=== PATIENT | female | born 1995 | race Caucasian/White ===

== ENCOUNTER 2016-09-16 12:12 | Emergency (ER) | payer MEDICAID ==
[~2016-09-16] VITALS: Ht 160 cm; Wt 72.1 kg
[2016-09-16 12:20] VITALS: BP 112/71; PULSE 103; RESP 16; TEMP 98.5; O2SAT 97
[2016-09-16] MEDS ORDERED: SODIUM CHLOR 0.9% 1000 ML INJ 1,000 ML IV SCH (13:07)
--- NOTE | 2016-09-16 13:07 | PD ---
HPI . vomiting and possible UTI Chief Complaint: GI Complaint Time Seen by Provider: 13:07 Travel History International Travel<30 days: No Contact w/Intl Traveler<30days: No Traveled to known affect area: No History of Present Illness HPI 20-year-old female who is 7 weeks complains of vomiting 5 times this morning and possible UTI. Patient says she has been having some nausea and vomiting and decided to come to the emergency department as her wooden boat builder told her she may need IV fluids due to possible electrolyte imbalance. She is also telling me that she has a sensation of UTI and would like her urine checked. She tells me that she has the same symptoms of nausea and vomiting compared to prior pregnancies. She denies any abdominal pain or vaginal bleeding. She has no other complaints. PFSH Past Medical History Medical History: Denies Significant Hx Tetanus Vaccination: < 5 Years Influenza Vaccination: No ?: LMP: 07/30/16 Past Surgical History Surgical History: No Previous Surgery Social History Alcohol Use: No Tobacco Use: No Substance Use: No Allergies-Medications (Allergen,Severity, Reaction): Coded Allergies: No Known Allergies (Unverified , 09/16/16) Reported Meds & Prescriptions Reported Meds & Active Scripts Active No Active Prescriptions or Reported Medications Review of Systems General / Constitutional: No: Fever Eyes: No: Visual changes HENT: No: Headaches Cardiovascular: No: Chest Pain or Discomfort Respiratory: No: Shortness of Breath Gastrointestinal: Positive: Nausea, Vomiting, No: Abdominal Pain Genitourinary: Positive: Frequency, No: Dysuria Musculoskeletal: No: Pain Skin: No Rash Neurologic: No: Weakness Psychiatric: No: Depression Endocrine: No: Polydipsia Hematologic/Lymphatic: No: Easy Bruising Physical Exam Narrative GENERAL: AAO x 3, no acute distress, Well-nourished, well-developed patient. SKIN: Warm and dry. No visible rashes or bruising. HEAD: Normocephalic and atraumatic. EYES: No scleral icterus. No injection or drainage. ENT: No nasal drainage noted. Mucous membranes pink. Airway patent. NECK: Supple, trachea midline. No JVD. CARDIOVASCULAR: Regular rate and rhythm without murmurs, gallops, or rubs. RESPIRATORY: Breath sounds equal bilaterally. No accessory muscle use. No rhonchi or rales. GASTROINTESTINAL: Abdomen soft, non-tender, nondistended. EXTREMITIES: No cyanosis or edema. BACK: Nontender without obvious deformity. No CVA tenderness. PSYCH: AAO x 3, normal affect. Data Data Last Documented VS Vital Signs Date Time Temp Pulse Resp B/P Pulse Ox O2 Delivery O2 Flow Rate FiO2 09/16/16 12:20 98.5 103 16 112/71 97 Orders Basic Metabolic Panel (Bmp) (09/16/16 13:07) Beta Hcg (Quant/Titer) (09/16/16 13:07) Complete Blood Count With Diff (09/16/16 13:07) Urinalysis - C+S If Indicated (09/16/16 13:07) Iv Access Insert/Monitor (09/16/16 13:07) Sodium Chlor 0.9% 1000 Ml Inj (Ns 1000 M (09/16/16 13:07) Labs Laboratory Tests Test 09/16/16 09/16/16 13:30 13:38 Urine Collection Type CLEAN CATCH Urine Color YELLOW Urine Turbidity SLIGHTY CLOUDY Urine pH 7.0 Urine Specific [place] 1.033 Urine Protein TRACE mg/dL Urine Glucose (UA) NEG mg/dL Urine Ketones TRACE mg/dL Urine Occult Blood NEG Urine Nitrite NEG Urine Bilirubin NEG Urine Leukocyte Esterase NEG Urine WBC 0-2 /hpf Urine Squamous Epithelial > 8 /hpf Cells Urine Amorphous Sediment FEW Urine Bacteria FEW /hpf Microscopic Urinalysis Comment CULT NOT INDICATED White Blood Count 6.2 TH/MM3 Red Blood Count 5.01 MIL/MM3 Hemoglobin 14.6 GM/DL Hematocrit 44.1 % Mean Corpuscular Volume 87.9 FL Mean Corpuscular Hemoglobin 29.2 PG Mean Corpuscular Hemoglobin 33.2 % Concent Red Cell Distribution Width 12.4 % Platelet Count 297 TH/MM3 Mean Platelet Volume 7.7 FL Neutrophils (%) (Auto) 76.0 % Lymphocytes (%) (Auto) 17.8 % Monocytes (%) (Auto) 5.3 % Eosinophils (%) (Auto) 0.4 % Basophils (%) (Auto) 0.5 % Neutrophils # (Auto) 4.8 TH/MM3 Lymphocytes # (Auto) 1.1 TH/MM3 Monocytes # (Auto) 0.3 TH/MM3 Eosinophils # (Auto) 0.0 TH/MM3 Basophils # (Auto) 0.0 TH/MM3 CBC Comment DIFF FINAL Differential Comment Sodium Level 139 MEQ/L Potassium Level 3.9 MEQ/L Chloride Level 106 MEQ/L Carbon Dioxide Level 24.7 MEQ/L Anion Gap 8 MEQ/L Blood Urea Nitrogen 10 MG/DL Creatinine 0.62 MG/DL Estimat Glomerular Filtration 124 ML/MIN Rate Random Glucose 84 MG/DL Calcium Level 8.2 MG/DL Human Chorionic Gonadotropin, [address] MIU/ML Quant MDM Medical Decision Making Medical Screen Exam Complete: Yes Emergency Medical Condition: Yes Medical Record Reviewed: Yes Differential Diagnosis Hyperemesis gravidarum, nausea and vomiting associated with , UTI Narrative Course 20-year-old female who is 7 weeks complains of vomiting 5 times this morning and possible UTI. Patient says she has been having some nausea and vomiting and decided to come to the emergency department as her wooden boat builder told her she may need IV fluids due to possible electrolyte imbalance. She is also telling me that she has a sensation of UTI and would like her urine checked. She tells me that she has the same symptoms of nausea and vomiting compared to prior pregnancies. She denies any abdominal pain or vaginal bleeding. She has no other complaints. Patient seen and examined. She is hemodynamically stable and there are no abnormal findings on physical exam. We'll check labs and UA. If negative, patient will be discharged home and advised to follow up with her wooden boat builder. I've explained all of the anti-nausea medications and their risk with and side effects. Together we have both decided that she will hold off on taking any of these medications. She will return to the ED if her symptoms return or worsen. Discussed all negative findings with patient. Laboratory Tests Test 09/16/16 09/16/16 13:30 13:38 Urine Collection Type CLEAN CATCH Urine Color YELLOW Urine Turbidity SLIGHTY CLOUDY Urine pH 7.0 Urine Specific [place] 1.033 Urine Protein TRACE mg/dL Urine Glucose (UA) NEG mg/dL Urine Ketones TRACE mg/dL Urine Occult Blood NEG Urine Nitrite NEG Urine Bilirubin NEG Urine Leukocyte Esterase NEG Urine WBC 0-2 /hpf Urine Squamous Epithelial > 8 /hpf Cells Urine Amorphous Sediment FEW Urine Bacteria FEW /hpf Microscopic Urinalysis Comment CULT NOT INDICATED White Blood Count 6.2 TH/MM3 Red Blood Count 5.01 MIL/MM3 Hemoglobin 14.6 GM/DL Hematocrit 44.1 % Mean Corpuscular Volume 87.9 FL Mean Corpuscular Hemoglobin 29.2 PG Mean Corpuscular Hemoglobin 33.2 % Concent Red Cell Distribution Width 12.4 % Platelet Count 297 TH/MM3 Mean Platelet Volume 7.7 FL Neutrophils (%) (Auto) 76.0 % Lymphocytes (%) (Auto) 17.8 % Monocytes (%) (Auto) 5.3 % Eosinophils (%) (Auto) 0.4 % Basophils (%) (Auto) 0.5 % Neutrophils # (Auto) 4.8 TH/MM3 Lymphocytes # (Auto) 1.1 TH/MM3 Monocytes # (Auto) 0.3 TH/MM3 Eosinophils # (Auto) 0.0 TH/MM3 Basophils # (Auto) 0.0 TH/MM3 CBC Comment DIFF FINAL Differential Comment Sodium Level 139 MEQ/L Potassium Level 3.9 MEQ/L Chloride Level 106 MEQ/L Carbon Dioxide Level 24.7 MEQ/L Anion Gap 8 MEQ/L Blood Urea Nitrogen 10 MG/DL Creatinine 0.62 MG/DL Estimat Glomerular Filtration 124 ML/MIN Rate Random Glucose 84 MG/DL Calcium Level 8.2 MG/DL Human Chorionic Gonadotropin, [address] MIU/ML Quant Patient verbalized understanding of instructions, questions were answered, and thanked me for their care. I advised them if their condition worsens, please return to the nearest emergency room for further care. Diagnosis Primary Impression: Nausea and vomiting Qualified Code: R11.2 - Non-intractable vomiting with nausea, unspecified vomiting type Additional Impression: Qualified Code: Z3A.01 - Less than 8 weeks gestation of Patient Instructions: General Instructions, Hyperemesis Gravidarum (ED) Additional Instructions: Please return to emergency department if your symptoms return or worsen. Follow up with your primary care provider. Please follow up with your wooden boat builder this week. Med/Other Pt SpecificInfo: No Change to Meds Scripts No Active Prescriptions or Reported Meds Disposition: 01 DISCHARGE HOME Condition: Stable Yary Dixon Sep 16, 2016 13:07
[2016-09-16 13:47] LABS: BLOOD, URINE NEG (NEG); GLUCOSE,URINE NEG (NEG); KETONE, URINE TRACE mg/dL (NEG); NITRITE,URINE NEG (NEG)
[2016-09-16 13:48] LABS: AUTOMATED NEUTROPHIL # 4.8 TH/MM3 (1.8-7.7); BASOPHIL % 0.5 % (0.0-2.0); EOSINOPHIL % 0.4 % (0.0-4.0); HEMATOCRIT 44.1 % (35.0-46.0); HEMO FLAGS DIFF FINAL; LYMPH % 17.8 % (9.0-44.0); LYMPHOCYTE # 1.1 TH/MM3 (1.0-4.8); MEAN CELL VOLUME 87.9 FL (80.0-100.0); MEAN CORPUSCULAR HEMOGLOBIN 29.2 PG (27.0-34.0); MEAN CORPUSCULAR HGB CONC 33.2 % (32.0-36.0); MONO % 5.3 % (0.0-8.0); PLATELET COUNT 297 TH/MM3 (150-450); RED BLOOD COUNT 5.01 MIL/MM3 (4.00-5.30); RED CELL DISTRIBUTION WIDTH 12.4 % (11.6-17.2); WHITE BLOOD COUNT 6.2 TH/MM3 (4.0-11.0)
[2016-09-16 13:49] LABS: METHOD OF COLLECTION CLEAN CATCH; URINE COLOR YELLOW (YELLW/STRAW)
[2016-09-16 13:51] LABS: BACTERIA, URINE FEW /hpf; COMMENT (UR) CULT NOT INDICATED; CULTURE IF INDICATED CULT NOT INDICATED; SQUAMOUS EPITHELIAL CELL URINE > 8 /hpf (0-5); WBC, URINE 0-2 /hpf (0-5)
[2016-09-16 13:57] LABS: POTASSIUM 3.9 MEQ/L (3.5-5.1)
[2016-09-16 14:00] LABS: BICARBONATE 24.7 MEQ/L (21.0-32.0)
[2016-09-16 14:30] VITALS: BP 119/71; PULSE 82; RESP 14; O2SAT 100
== END 2016-09-16 14:35 | disposition home or self-care (01) ==
LOC: PHEFT 12:12
DX: O21.0 Mild hyperemesis gravidarum (principal); Z3A.01 Less than 8 weeks gestation of pregnancy
CPT/HCPCS: 80048; 81001; 84702; 85025; 96360; 99284; J7030

== ENCOUNTER 2016-09-25 17:55 | Emergency (ER) | payer MEDICAID ==
[~2016-09-25] VITALS: Ht 160 cm; Wt 71.8 kg
[2016-09-25 17:56] VITALS: BP 118/72; PULSE 106; RESP 20; TEMP 98.2; O2SAT 100
[2016-09-25] MEDS ORDERED: ONDANSETRON HCL 4 MG/2 ML VIAL IV PUSH ONE (20:00)
[2016-09-25] MEDS ORDERED: SODIUM CHLOR 0.9% 1000 ML INJ 1,000 ML IV ONE ×2 (20:00→21:30)
[2016-09-25] MEDS ORDERED: SODIUM CHLORIDE 0.9% FLUSH 10 ML FLUSH IVF PRN (20:00)
--- NOTE | 2016-09-25 20:05 | PD ---
HPI Chief Complaint: GI Complaint Time Seen by Provider: 20:02 Travel History International Travel<30 days: No Contact w/Intl Traveler<30days: No Traveled to known affect area: No History of Present Illness HPI 20-year-old female presents to the emergency department for evaluation nausea and vomiting this is ongoing for 6 weeks. She states that she started with low back pain and abdominal cramping last night. She was seen at ED previously and states that she was not given any nausea medication. Her funeral counselor told her to return the emergency department if her symptoms reoccurred. She states that she has been unable to keep anything down today and has had multiple episodes of vomiting. She reports being 8 weeks . Her last menstrual period was July 30, 2016. She is a G2, P1. She has no chronic medical problems and takes no medications. She has no known allergies. She denies any fevers. No chest pressure breath. No diarrhea. No other complaints. She denies any abnormal vaginal discharge. No vaginal bleeding or leakage of fluid. PFSH Past Medical History ?: LMP: 07/30/2016 Social History Alcohol Use: No Tobacco Use: No Substance Use: No Allergies-Medications (Allergen,Severity, Reaction): Coded Allergies: No Known Allergies (Unverified , 09/25/16) Reported Meds & Prescriptions Reported Meds & Active Scripts Active No Active Prescriptions or Reported Medications Review of Systems Except as stated in HPI: all other systems reviewed are Neg Physical Exam Narrative GENERAL: Well-nourished, well-developed female patient ambulatory. Afebrile., SKIN: Focused skin assessment warm/dry. HEAD: Normocephalic. Atraumatic. EYES: No scleral icterus. No injection or drainage. NECK: Supple, trachea midline. No JVD or lymphadenopathy. CARDIOVASCULAR: Regular rate and rhythm without murmurs, gallops, or rubs. RESPIRATORY: Breath sounds equal bilaterally. No accessory muscle use. Lungs sounds are clear to auscultation. GASTROINTESTINAL: Abdomen and nondistended. Mild pelvic tenderness to palpation. MUSCULOSKELETAL: No cyanosis, or edema. BACK: Nontender without obvious deformity. No CVA tenderness. Data Data Last Documented VS Vital Signs Date Time Temp Pulse Resp B/P Pulse Ox O2 Delivery O2 Flow Rate FiO2 09/25/16 17:56 98.2 106 20 118/72 100 Room Air Orders Beta Hcg (Quant/Titer) (09/25/16 20:00) Complete Blood Count With Diff (09/25/16 20:00) Comprehensive Metabolic Panel (09/25/16 20:00) Urinalysis - C+S If Indicated (09/25/16 20:00) Sodium Chloride 0.9% Flush (Ns Flush) (09/25/16 20:00) Sodium Chlor 0.9% 1000 Ml Inj (Ns 1000 M (09/25/16 20:00) Ondansetron Inj (Zofran Inj) (09/25/16 20:00) Ed Poc Ultrasound (09/25/16 ) Ed Poc Ultrasound (09/25/16 ) MDM Medical Decision Making Medical Screen Exam Complete: Yes Emergency Medical Condition: Yes Medical Record Reviewed: Yes Differential Diagnosis Nausea and vomiting during versus intrauterine versus ectopic versus dehydration versus electrolyte abnormality Narrative Course 20-year-old female presents to the emergency department for evaluation nausea and vomiting during . She reports being approximately 8 weeks . Patient does report some mild abdominal cramping as well. CBC, CMP, beta hCG, UA are ordered and pending. Patient is given normal saline 1 L IV bolus, Zofran 4 mg IV. ED POC ultrasound shows single intrauterine with good FHT, done by my attending physician, Dr. Freitas. Dr. Freitas will resume care and disposition of patient. Scripts No Active Prescriptions or Reported Meds Maura Lux Sep 25, 2016 20:04
--- NOTE | 2016-09-25 20:33 | PD ---
Physical Exam Date Seen by Provider: Sep 25, 2016 Time Seen by Provider: 20:30 Narrative The patient is a 20 year-old female was initially evaluated by the mid-level provider, please refer to the original history, physical, diagnostic evaluation , and treatment modality plan. Data Data Last Documented VS Vital Signs Date Time Temp Pulse Resp B/P Pulse Ox O2 Delivery O2 Flow Rate FiO2 09/25/16 17:56 98.2 106 20 118/72 100 Room Air Orders Beta Hcg (Quant/Titer) (09/25/16 20:00) Complete Blood Count With Diff (09/25/16 20:00) Comprehensive Metabolic Panel (09/25/16 20:00) Urinalysis - C+S If Indicated (09/25/16 20:00) Sodium Chloride 0.9% Flush (Ns Flush) (09/25/16 20:00) Sodium Chlor 0.9% 1000 Ml Inj (Ns 1000 M (09/25/16 20:00) Ondansetron Inj (Zofran Inj) (09/25/16 20:00) Ed Poc Ultrasound (09/25/16 ) Ed Poc Ultrasound (09/25/16 ) Urine Culture (09/25/16 20:15) Sodium Chlor 0.9% 1000 Ml Inj (Ns 1000 M (09/25/16 21:30) Labs Laboratory Tests Test 09/25/16 20:15 White Blood Count 8.2 TH/MM3 Red Blood Count 4.92 MIL/MM3 Hemoglobin 14.8 GM/DL Hematocrit 42.4 % Mean Corpuscular Volume 86.1 FL Mean Corpuscular Hemoglobin 30.0 PG Mean Corpuscular Hemoglobin 34.9 % Concent Red Cell Distribution Width 12.9 % Platelet Count 272 TH/MM3 Mean Platelet Volume 7.9 FL Neutrophils (%) (Auto) 81.5 % Lymphocytes (%) (Auto) 8.8 % Monocytes (%) (Auto) 9.3 % Eosinophils (%) (Auto) 0.3 % Basophils (%) (Auto) 0.1 % Neutrophils # (Auto) 6.7 TH/MM3 Lymphocytes # (Auto) 0.7 TH/MM3 Monocytes # (Auto) 0.8 TH/MM3 Eosinophils # (Auto) 0.0 TH/MM3 Basophils # (Auto) 0.0 TH/MM3 CBC Comment DIFF FINAL Differential Comment Urine Color YELLOW Urine Turbidity HAZY Urine pH 6.5 Urine Specific [place] 1.023 Urine Protein TRACE mg/dL Urine Glucose (UA) NEG mg/dL Urine Ketones 80 mg/dL Urine Occult Blood NEG Urine Nitrite NEG Urine Bilirubin NEG Urine Urobilinogen 2.0 MG/DL Urine Leukocyte Esterase LARGE Urine RBC 5 /hpf Urine WBC 7 /hpf Urine Squamous Epithelial 23 /hpf Cells Urine Bacteria MOD /hpf Urine Mucus FEW /lpf Microscopic Urinalysis Comment CULTURE INDICATED Sodium Level 136 MEQ/L Potassium Level 3.6 MEQ/L Chloride Level 103 MEQ/L Carbon Dioxide Level 22.0 MEQ/L Anion Gap 11 MEQ/L Blood Urea Nitrogen 9 MG/DL Creatinine 0.63 MG/DL Estimat Glomerular Filtration 122 ML/MIN Rate Random Glucose 81 MG/DL Calcium Level 8.8 MG/DL Total Bilirubin 1.1 MG/DL Aspartate Amino Transf 17 U/L (AST/SGOT) Alanine Aminotransferase 23 U/L (ALT/SGPT) Alkaline Phosphatase 58 U/L Total Protein 7.4 GM/DL Albumin 4.0 GM/DL Human Chorionic Gonadotropin, [address] MIU/ML Quant [facility] Medical Record Reviewed: Yes Supervised Visit with STEVE: Yes Interpretation(s) Laboratory Tests Test 09/25/16 20:15 White Blood Count 8.2 TH/MM3 Red Blood Count 4.92 MIL/MM3 Hemoglobin 14.8 GM/DL Hematocrit 42.4 % Mean Corpuscular Volume 86.1 FL Mean Corpuscular Hemoglobin 30.0 PG Mean Corpuscular Hemoglobin 34.9 % Concent Red Cell Distribution Width 12.9 % Platelet Count 272 TH/MM3 Mean Platelet Volume 7.9 FL Neutrophils (%) (Auto) 81.5 % Lymphocytes (%) (Auto) 8.8 % Monocytes (%) (Auto) 9.3 % Eosinophils (%) (Auto) 0.3 % Basophils (%) (Auto) 0.1 % Neutrophils # (Auto) 6.7 TH/MM3 Lymphocytes # (Auto) 0.7 TH/MM3 Monocytes # (Auto) 0.8 TH/MM3 Eosinophils # (Auto) 0.0 TH/MM3 Basophils # (Auto) 0.0 TH/MM3 CBC Comment DIFF FINAL Differential Comment Urine Color YELLOW Urine Turbidity HAZY Urine pH 6.5 Urine Specific [place] 1.023 Urine Protein TRACE mg/dL Urine Glucose (UA) NEG mg/dL Urine Ketones 80 mg/dL Urine Occult Blood NEG Urine Nitrite NEG Urine Bilirubin NEG Urine Urobilinogen 2.0 MG/DL Urine Leukocyte Esterase LARGE Urine RBC 5 /hpf Urine WBC 7 /hpf Urine Squamous Epithelial 23 /hpf Cells Urine Bacteria MOD /hpf Urine Mucus FEW /lpf Microscopic Urinalysis Comment CULTURE INDICATED Sodium Level 136 MEQ/L Potassium Level 3.6 MEQ/L Chloride Level 103 MEQ/L Carbon Dioxide Level 22.0 MEQ/L Anion Gap 11 MEQ/L Blood Urea Nitrogen 9 MG/DL Creatinine 0.63 MG/DL Estimat Glomerular Filtration 122 ML/MIN Rate Random Glucose 81 MG/DL Calcium Level 8.8 MG/DL Total Bilirubin 1.1 MG/DL Aspartate Amino Transf 17 U/L (AST/SGOT) Alanine Aminotransferase 23 U/L (ALT/SGPT) Alkaline Phosphatase 58 U/L Total Protein 7.4 GM/DL Albumin 4.0 GM/DL Human Chorionic Gonadotropin, 234[address] MIU/ML Quant Differential Diagnosis Differential diagnosis includes hyperemesis gravidarum, , morning sickness, dehydration, electrolyte abnormality, UTI. Narrative Course I, Dr. Freitas, have reviewed the advance practice practitioner's documentation and am in agreement, met with the patient face to face, made the diagnosis, and the medical decision making was done by me. *My assessment and Findings: 20-year-old female was initially evaluated by the mid-level provider. The patient is a last menstrual cycle July 25, 2016 is approximately 8 weeks . The patient presents with continuing nausea and vomiting. The patient also notes mild lower abdominal cramping but denies any bleeding. The patient's initial was uncomplicated, full- term, vaginal delivery. The patient denies any current dysuria, frequency, or urgency. Physical examination is unremarkable except for mild dehydration. Bedside ultrasound was performed which reveals IUP with positive heart tones. The patient was administered IV fluids and antiemetics. The patient was then monitored in the emergency department and reevaluated. The patient's UA reveals 23 squamous epithelia cells, 7 WBCs, 5 RBCs, most likely contaminant. The patient was reassessed at 9:28 PM, her symptoms had improved. The patient was administered one more liter of IV fluids that she did have 80 of ketones on UA. She will be discharged home on Zofran and Phenergan. I did have a discussion with regarding the safety of Zofran and Phenergan, category B and C respectively. She is advised to return if symptoms worsen or progress. Procedures Procedure Narrative Bedside ultrasound was performed with a curvilinear probe which reveals positive heart tones and IUP. The patient tolerated the procedure without difficulty and there was no obvious complications. Diagnosis Primary Impression: Nausea and vomiting Qualified Code: R11.2 - Non-intractable vomiting with nausea, unspecified vomiting type Additional Impression: Qualified Code: Z33.1 - , unspecified gestational age Patient Instructions: General Instructions Additional Instruction: Medications as directed. Also try nabila as needed. Plenty of fluids to stay hydrated. Follow-up with your psychologist military personnel. Return if symptoms worsen or progress. Med/Other Pt SpecificInfo: Prescription(s) given Scripts Promethazine (Phenergan)25 Mg Tab25 Mg PO Q6H PRN (Nausea/Vomiting) #10 TAB Ref 0 Prov:Vamshi Freitas MD 09/25/16 Ondansetron Odt (Zofran Odt)4 Mg Tab4 Mg SL Q6HR PRN (Nausea/Vomiting) #10 TAB Ref 0 Prov:Vamshi Freitas MD 09/25/16 Disposition: DISCHARGE HOME Condition: Stable Vamshi Freitas MD Sep 25, 2016 20:32
[2016-09-25 20:42] LABS: AUTOMATED NEUTROPHIL # 6.7 TH/MM3 (1.8-7.7); BASOPHIL % 0.1 % (0.0-2.0); EOSINOPHIL % 0.3 % (0.0-4.0); HEMATOCRIT 42.4 % (35.0-46.0); HEMO FLAGS DIFF FINAL; LYMPH % 8.8 % (9.0-44.0); LYMPHOCYTE # 0.7 TH/MM3 (1.0-4.8); MEAN CELL VOLUME 86.1 FL (80.0-100.0); MEAN CORPUSCULAR HGB CONC 34.9 % (32.0-36.0); MONO % 9.3 % (0.0-8.0); NEUT % 81.5 % (16.0-70.0); PLATELET COUNT 272 TH/MM3 (150-450); RED BLOOD COUNT 4.92 MIL/MM3 (4.00-5.30); RED CELL DISTRIBUTION WIDTH 12.9 % (11.6-17.2); WHITE BLOOD COUNT 8.2 TH/MM3 (4.0-11.0)
[2016-09-25 20:43] LABS: BACTERIA, URINE MOD /hpf; BLOOD, URINE NEG (NEG); COMMENT (UR) CULTURE INDICATED; CULTURE IF INDICATED CULTURE INDICATED; GLUCOSE,URINE NEG (NEG); KETONE, URINE 80 mg/dL (NEG); MUCUS URINE FEW /lpf (OCC); NITRITE,URINE NEG (NEG); PH, URINE 6.5 (5.0-8.5); SQUAMOUS EPITHELIAL CELL URINE 23 /hpf (0-5); URINE COLOR YELLOW (YELLW/STRAW)
[2016-09-25 21:05] LABS: ANION GAP 11 MEQ/L (5-15); AST (GOT) 17 U/L (16-38); BLOOD UREA NITROGEN 9 MG/DL (7-18); CHLORIDE 103 MEQ/L (98-107); GLOMERULAR FILTRATION RATE 122 ML/MIN (>89); POTASSIUM 3.6 MEQ/L (3.5-5.1); SODIUM (NA) 136 MEQ/L (136-145)
[2016-09-25 21:22] LABS: ALKALINE PHOSPHATASE 58 U/L (45-117); ALT (GPT) 23 U/L (9-42); BETA HCG QUANT 53160 MIU/ML (0-5); TOTAL BILIRUBIN ADULT 1.1 MG/DL (0.2-1.0)
[2016-09-25] MEDS ORDERED: PROM25TA5 PO (21:30)
[2016-09-25] MEDS ORDERED: ZOFR4TAB3 SL (21:30)
== END 2016-09-25 22:03 | disposition home or self-care (01) ==
LOC: NEPD 17:55
DX: O21.9 Vomiting of pregnancy, unspecified (principal); O23.41 Unspecified infection of urinary tract in pregnancy, first trimester; B96.89 Other specified bacterial agents as the cause of diseases classified elsewhere; Z3A.08 8 weeks gestation of pregnancy
CPT/HCPCS: 80053; 81001; 84702; 85025; 87086; 96361; 96374; 99284; J2405; J7030

== ENCOUNTER 2017-01-03 18:28 | Emergency (ER) | payer MEDICAID ==
[~2017-01-03] VITALS: Ht 160 cm; Wt 68.0 kg
[~2017-01-03 18:28] MED LIST: PROM25TA5 PO; ZOFR4TAB3 SL
[2017-01-03 18:29] VITALS: BP 116/42; PULSE 85; RESP 17; TEMP 98.3; O2SAT 97
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
== END 2017-01-03 21:15 | disposition home or self-care (01) ==
LOC: HOBED 18:28
DX: O26.892 Other specified pregnancy related conditions, second trimester (principal); M54.5 Low back pain; V49.59XA Passenger injured in collision with other motor vehicles in traffic accident, initial encounter; Y92.410 Unspecified street and highway as the place of occurrence of the external cause; Z3A.22 22 weeks gestation of pregnancy
CPT/HCPCS: 99281

== ENCOUNTER 2017-03-29 19:36 | Emergency (ER) | payer MEDICAID ==
--- NOTE | 2017-03-29 19:53 | PD ---
HPI Chief Complaint Cramping Date Seen: Mar 29, 2017 Time Seen: 19:51 Travel History International Travel<30 Days: No Contact w/Intl Traveler<30Days: No Known Affected Area: No History of Present Illness HPI 21-year-old 2 para 1 at 34+ weeks gestation who has felt lower abdominal pressure over the past couple days. She also reports low back pain and cramping although she does not feel like she is jori. She denies dysuria hematuria or frequency. No nausea vomiting or diarrhea. No leakage of fluid or vaginal discharge. She reports good movement. Para: 1 : 2 History Past Medical History Medical History: Denies Significant Hx Obstetric History Obstetric History 1 term vaginal delivery She receives her care at [facility]. She reports no complications with this . Past Surgical History Surgical History: No Previous Surgery Family History Family History: Negative Social History Alcohol Use: No Tobacco Use: No Substance Abuse: No Allergies-Medications (Allergen,Severity, Reaction): Coded Allergies: No Known Allergies (Unverified , 09/25/16) Home Meds Active Scripts Promethazine (Phenergan) 25 Mg Tab, 25 MG PO Q6H Y for Nausea/Vomiting, #10 TAB 0 Refills Prov:Vamshi Freitas MD 09/25/16 Ondansetron Odt (Zofran Odt) 4 Mg Tab, 4 MG SL Q6HR Y for Nausea/Vomiting, #10 TAB 0 Refills Prov:Vamshi Freitas MD 09/25/16 Review of Systems Except as stated in HPI: all other systems reviewed are Neg Physical Exam Narrative GENERAL: Well-nourished, well-developed patient. SKIN: Warm and dry. HEAD: Normocephalic and atraumatic. EYES: No scleral icterus. No injection or drainage. ENT: No nasal drainage noted. Mucous membranes pink. Airway patent. NECK: Supple, trachea midline. No JVD. CARDIOVASCULAR: Regular rate and rhythm without murmurs, gallops, or rubs. RESPIRATORY: Breath sounds equal bilaterally. No accessory muscle use. BREASTS: Bilateral exam showed no masses , no retractions, no nipple discharge. ABDOMEN/GI: Abdomen soft, non-tender, bowel sounds present, no rebound, no guarding Gravid to [-] weeks size Fundal Height: [33-] GENITOURINARY: External Genitalia: intact and normal in appearance BUS glands: [-Negative] Cervix: [-] Dilatation: [Closed-] Effacement: [-Long] Station: [--] Presentation: [-] Membranes: [intact] Uterine Contractions: [-] FHT's: Category: [1-] Baseline: [-] Reactive: [-Reactive] Variability: [-] Decels: [-] EXTREMITIES: No cyanosis or edema. BACK: Nontender without obvious deformity. No CVA tenderness. NEUROLOGICAL: Awake and alert. Motor and sensory grossly within normal limits. Five out of 5 muscle strength in all muscle groups. Normal speech. Data Data Vital Signs Reviewed: Yes MDM Medical Record Reviewed: Yes Narrative Course / MDM Assessment: 34+ week intrauterine with discomforts of without evidence of labor Plan: Labor precautions were reviewed. She'll follow up as scheduled for visit. Diagnosis Diagnosis: Primary Impression: 34 weeks gestation of Additional Impression: Low back pain during in third trimester Disposition: 01 DISCHARGE HOME Condition: Stable Eusebio Leyva MD Mar 29, 2017 19:53
== END 2017-03-29 20:29 | disposition home or self-care (01) ==
LOC: HOBED 19:36
DX: O26.893 Other specified pregnancy related conditions, third trimester (principal); M54.5 Low back pain; Z3A.34 34 weeks gestation of pregnancy
CPT/HCPCS: 59025

== ENCOUNTER 2017-08-09 22:34 | Emergency (ER) | payer MEDICAID ==
[~2017-08-09] VITALS: Ht 160 cm; Wt 72.0 kg
[2017-08-09 22:36] VITALS: BP 121/73; PULSE 89; RESP 18; TEMP 98.3; O2SAT 96
[2017-08-09] MEDS ORDERED: IBUP-232 PO (22:54)
[2017-08-09] MEDS ORDERED: GUAISYP4 PO (23:30)
--- NOTE | 2017-08-09 23:31 | PD ---
HPI Chief Complaint: Cold / Flu Symptoms Time Seen by Provider: 23:22 Travel History International Travel<30 days: No Contact w/Intl Traveler<30days: No Traveled to known affect area: No History of Present Illness HPI The patient is a 21-year-old female that complains of a cough and low-grade fever for 2 days. She is breast-feeding. She denies any chest pain, nausea, vomiting or diarrhea. Her fever was 100.4 at home today and 102.4 yesterday. She took Motrin before coming in today. She denies any pain in her pain level as a 0/10. PFSH Past Medical History Diminished Hearing: No ?: Not LMP: Jul 2016 Para: 1 Social History Alcohol Use: No Tobacco Use: No Substance Use: No Allergies-Medications (Allergen,Severity, Reaction): Coded Allergies: No Known Allergies (Verified Adverse Reaction, Unknown, 08/09/17) Reported Meds & Prescriptions Reported Meds & Active Scripts Active Reported Ibuprofen 600 Mg Tab 600 Mg PO Q6H PRN Review of Systems Except as stated in HPI: all other systems reviewed are Neg Physical Exam Narrative GENERAL: The patient is alert, oriented 3 in no respiratory distress. Her vital signs are normal. SKIN: Focused skin assessment warm/dry. HEAD: Atraumatic. Normocephalic. EYES: Pupils equal and round. No scleral icterus. No injection or drainage. ENT: No nasal bleeding or discharge. Mucous membranes pink and moist. NECK: Trachea midline. No JVD. CARDIOVASCULAR: Regular rate and rhythm. No murmur appreciated. RESPIRATORY: No accessory muscle use. Clear to auscultation. Breath sounds equal bilaterally. GASTROINTESTINAL: Abdomen soft, non-tender, nondistended. Hepatic and splenic margins not palpable. MUSCULOSKELETAL: No obvious deformities. No clubbing. No cyanosis. No edema. NEUROLOGICAL: Awake and alert. No obvious cranial nerve deficits. Motor grossly within normal limits. Normal speech. PSYCHIATRIC: Appropriate mood and affect; insight and judgment normal. Data Data Last Documented VS Vital Signs Date Time Temp Pulse Resp B/P (MAP) Pulse Ox O2 Delivery O2 Flow Rate FiO2 08/09/17 22:51 18 08/09/17 22:36 98.3 89 121/73 (89) 96 Orders Orders Influenzae A/B Antigen (08/09/17 22:35) [facility] Medical Decision Making Medical Screen Exam Complete: Yes Emergency Medical Condition: Yes Medical Record Reviewed: Yes Interpretation(s) The influenza A/B antigen is negative for flu a and flu B antigen. Differential Diagnosis Flu syndrome, viral upper respiratory infection, pneumonia-highly unlikely Narrative Course The patient has viral upper respiratory infection. She will need to increase liquids, rest and is given a codeine containing cough syrup. Diagnosis Primary Impression: Viral upper respiratory infection Additional Instructions: As we discussed, increase liquid intake and follow-up with her primary care physician next week. Do not drink alcohol or drive until you find out how the codeine cough syrup affects you. Med/Other Pt SpecificInfo: Prescription(s) given Scripts Guaifenesin-Codeine Liq (Guaifenesin AC Liq) 100-10 Mg/5 Ml Syrp 10 ML PO Q4H Y for COUGH, #1 BOTTLE 0 Refills Prov: Eitan Laurent MD 08/09/17 Disposition: 01 DISCHARGE HOME Condition: Stable Eitan Laurent MD Aug 09, 2017 23:31
[2017-08-09] MEDS ORDERED: guaiFENesin/CODEINE SYRUP 200 MG/20 MG/10 ML CUP PO ONE (23:45)
[2017-08-10 00:07] VITALS: TEMP 98.5
== END 2017-08-10 00:09 | disposition home or self-care (01) ==
LOC: PHED 22:34
DX: J06.9 Acute upper respiratory infection, unspecified (principal); R50.9 Fever, unspecified
CPT/HCPCS: 87804; 99283